=== PATIENT | male | born 1955 | race Caucasian/White ===

== ENCOUNTER 2017-02-18 08:26 | Day surgery (SDC) | payer BC ==
[2017-02-13 16:20] LABS: HEMOGLOBIN 13.5 g/dL (13.6-17.8)
[2017-02-13 16:38] LABS: ALBUMIN 3.7 G/DL (3.5-5.0); ALKALINE PHOSPHATASE 70 U/L (45-117); CALCIUM, SERUM 8.8 MG/DL (8.5-10.4); CHLORIDE, SERUM 98 MMOL/L (96-112); CREATININE 1.18 MG/DL (0.70-1.30); GFR AFRICAN AMERICAN 77 ML/MIN (>=60); GFR NON AFRICAN AMERICAN 67 ML/MIN (>=60); POTASSIUM, SERUM 4.2 MMOL/L (3.5-5.3); SGOT(AST) 16 U/L (5-40); SGPT(ALT) 38 U/L (5-65); SODIUM, SERUM 141 MMOL/L (135-148); TOTAL PROTEIN 6.9 G/DL (6.0-8.5)
[2017-02-13 16:39] LABS: BUN (BLOOD UREA NITROGEN) 25 MG/DL (6-23); CO2 (CARBON DIOXIDE) 32 MMOL/L (24-34); DIRECT BILIRUBIN < 0.1 MG/DL (0.0-0.4); GLUCOSE, SERUM 247 MG/DL (60-99); INDIRECT BILIRUBIN(NOT ORDER) 0.8 MG/DL (0.1-0.9); TOTAL BILIRUBIN 0.9 MG/DL (0-1.2)
--- NOTE | ~2017-02-18 | OP ---
Record Of Operation [facility] [address] [place]. [address] NAME: HAKAN JUAREZ : 57 STATUS : [facility] PAT#: [id number] AGE: 61 ADM/REG DATE : 02/18/17 MR#: [id number] REPORT SERV DATE: 02/18/17 DICTATED BY: JAMAAL COLE DATE: 02/18/17 REPORT STATUS : Draft TRANSCRIBED BY: MODL DATE: 02/18/17 DATE OF PROCEDURE: 02/18/2017 PREOPERATIVE DIAGNOSES: 1. Chronic nasal obstruction. 2. Morbid obesity. 3. Obstructive sleep apnea syndrome. 4. Uvular redundancy. 5. Septal deviation. 6. Bilateral inferior turbinate hypertrophy. POSTOPERATIVE DIAGNOSES: 1. Chronic nasal obstruction. 2. Morbid obesity. 3. Obstructive sleep apnea syndrome. 4. Uvular redundancy. 5. Septal deviation. 6. Bilateral inferior turbinate hypertrophy. PROCEDURE: 1. Septoplasty. 2. Bilateral inferior turbinoplasty. 3. Uvulectomy. SURGEON: Jamaal Cole M.D. ANESTHESIA: General. COMPLICATIONS: None. COUNTS: All counts correct following the procedure. ESTIMATED BLOOD LOSS: 20 mL. PREOPERATIVE INFORMED CONSENT: We discussed risks and benefits of surgery including, but not limited to bleeding, infection, possible CSF leak, possible septal perforation, possible saddle nose deformity, possible persistent nasal obstruction despite surgery, possible velopalatal incompetence, and consent is on the chart. OPERATIVE FINDINGS: The patient was noted to have severely crushed anterior nasal septum and scoring of the septal cartilage from previous septal surgery by another physician. The inferior septal cartilage was released from the maxillary crest allowing the septal cartilage to swing back into the midline. The vomer had already most been removed from previous surgery and the perpendicular plate of the ethmoid bone was noted to be in midline. Once this corrected the deviation, the hemitransfixion incision was closed in the usual fashion. Record Of Operation [facility] [address] [place]. [address] NAME: HAKAN JUAREZ : 57 STATUS : [facility] PAT#: [id number] AGE: 61 ADM/REG DATE : 02/18/17 MR#: [id number] REPORT SERV DATE: 02/18/17 DICTATED BY: JAMAAL COLE DATE: 02/18/17 REPORT STATUS : Draft TRANSCRIBED BY: BERNARD DATE: 02/18/17 PROCEDURE IN DETAIL: The patient was brought to the operating suite and placed on the operating table in the supine position. General endotracheal anesthesia was initiated without incident. The patient's head and neck were cleaned, prepped and draped in the usual sterile fashion. Following this, both sides of the septum and inferior turbinates were injected with 1% Lidocaine with 1:100,000 epinephrine for hemostasis. Approximately 12.0 cc. were used. Following this, a #15 blade scalpel was used to performed a left hemitransfixion incision down to the underlying septal cartilage. A mucoperichondrial flap was raised along the left side of the nasal septum using [place] and [place] elevators. The bony cartilaginous junction was using the [place] elevator and then the mucoperiosteum was raised off both sides of the bony nasal septum. A thin strip of the cartilaginous septum along the maxillary crest was removed using a #15 blade scalpel and a Jew[place] elevator, allowing the cartilaginous septum to swing back in the midline. The maxillary crest was exposed using the [place] elevator and removed using the 6.0 mm. straight osteotome. The deviated bony nasal septum was taken down using open John-Escalera forceps, as well as Kaleigh forceps. Once the septal deviation had been corrected, the left hemitransfixion incision was closed using interrupted 4-0 chromic suture. The Xomed turbinate shaver was then used to perform submucous resection of both inferior turbinates without difficulty and both inferior turbinates were infractured and both the medial and lateral surfaces were cauterized using the Harmonic scalpel. Both inferior turbinates were then outfractured. Breathe-Easy septal splints were then placed on either side of the nasal septum and sutured in the midline using 2-0 nylon suture. The nasopharynx was suctioned free of any blood clots. The patient was awakened from anesthesia and taken to the recovery room in stable condition. After placing a [employer]ili[employer]-D[employer] retractor into oral cavity, we exposed the oropharynx. The uvula was injected with 5 mL of 1% lidocaine and 1:100,000 epinephrine for hemostasis. A curved Metzenbaum scissor was used to transect the uvula at its base preserving the posterior mucosa. The mucosal flaps were then advanced and closed using interrupted 4-0 chromic suture. The patient was awakened from anesthesia and taken to the recovery room in stable condition. JOSE/BRENARD Jamaal Cole M.D. / [id number] CC: Record Of Operation [address] [place] [address] NAME: HAKAN JUAREZ : 57 STATUS : [facility] PAT#: [id number] AGE: 61 ADM/REG DATE : 02/18/17 MR#: [id number] REPORT SERV DATE: 02/18/17 DICTATED BY: JAMAAL COLE DATE: 02/18/17 REPORT STATUS : Draft TRANSCRIBED BY: BERNARD DATE: 02/18/17 Krystian Perry M.D.
[~2017-02-18 08:26] MED LIST: AMB10 PO; AMIT25 PO; ENDOCET1 TA3 PO; FISH-EPA1000 MG PO; GLUCCHONDR PO; GLUCPH PO; HYDROCHLOROT25 MG PO; LIOR10 PO; MOBIC15 MG PO; NEUR400 PO; OPANA ER30 MG PO; SINGULAIR1 PO; ZESTRIL30 MG PO; ZOCOR20 PO
== END 2017-02-18 17:43 | disposition home or self-care (01) ==
LOC: SDC 08:26
PROVIDERS: Otolaryngology
PROC: 09QL0ZZ Repair Nasal Turbinate, Open Approach (ICD-10-PCS; 2017-02-18)
PROC: 0CTN0ZZ Resection of Uvula, Open Approach (ICD-10-PCS; 2017-02-18)
PROC: 09SM0ZZ Reposition Nasal Septum, Open Approach (ICD-10-PCS; principal; 2017-02-18 09:30)
DX: K12.2 Cellulitis and abscess of mouth (principal); J31.0 Chronic rhinitis; J34.89 Other specified disorders of nose and nasal sinuses; J34.2 Deviated nasal septum; J34.3 Hypertrophy of nasal turbinates; J44.9 Chronic obstructive pulmonary disease, unspecified; J45.909 Unspecified asthma, uncomplicated; G47.33 Obstructive sleep apnea (adult) (pediatric); E66.01 Morbid (severe) obesity due to excess calories; Z68.43 Body mass index [BMI] 50.0-59.9, adult; I10 Essential (primary) hypertension; E11.9 Type 2 diabetes mellitus without complications; E78.5 Hyperlipidemia, unspecified; E78.00 Pure hypercholesterolemia, unspecified; Q78.0 Osteogenesis imperfecta; M19.90 Unspecified osteoarthritis, unspecified site; M54.5 Low back pain; K21.9 Gastro-esophageal reflux disease without esophagitis; K76.0 Fatty (change of) liver, not elsewhere classified; L40.9 Psoriasis, unspecified; H91.92 Unspecified hearing loss, left ear; F17.200 Nicotine dependence, unspecified, uncomplicated; Z83.3 Family history of diabetes mellitus; Z80.9 Family history of malignant neoplasm, unspecified; Z82.5 Family history of asthma and other chronic lower respiratory diseases; Z83.2 Family history of diseases of the blood and blood-forming organs and certain disorders involving the immune mechanism; Z91.19 Patient's noncompliance with other medical treatment and regimen; Z88.5 Allergy status to narcotic agent; Z79.1 Long term (current) use of non-steroidal anti-inflammatories (NSAID); Z79.84 Long term (current) use of oral hypoglycemic drugs; Z79.891 Long term (current) use of opiate analgesic; Z79.899 Other long term (current) drug therapy; Z98.890 Other specified postprocedural states; Z98.1 Arthrodesis status
CPT/HCPCS: 80048; 80076; 82962; 85014; 85018; 88300; 88304; 93005; 94640; A9270-GY; J0330; J0690; J2250; J2370; J2405; J2710; J3010